=== PATIENT | male | born 1975 | race Hispanic/Latino ===

== ENCOUNTER 2016-06-08 11:25 | Emergency (ER) | payer SELFPAY ==
[~2016-06-08] VITALS: Ht 172.7 cm; Wt 80.0 kg
--- NOTE | 2016-06-08 11:41 | ED.REPORT ---
HPI-General Illness Date of Service June 08, 2016 ED Provider: Abdoul Link DO 40 year old Sammarinese-speaking male with a history of alcohol abuse presents to the ER via EMS accompanied by multiple family members complaining of four days of tingling in the right side of his face, and ringing in his right ear. Symptoms are exacerbated by laying flat, and relieved by standing. Associated symptoms include chills and diaphoresis at night. Patient denies headache, nausea, vomiting, diarrhea, chest pain, hematochezia, and melena. He also reports two bouts of coffee ground appearing emesis two weeks ago. Patient states that he drinks twelve beers daily, but he has been cutting down to 4-6 beers since symptoms onset. When questioned about his angina, he reports that episodes present with pain and tingling down his arm. Nursing Notes Stated Complaint: NIGHT SWEATS/CHILLS/EAR RINGING Nursing Notes Reviewed: Yes Allergies: Coded Allergies: No Known Allergies (Unverified , 06/08/16) Scheduled Lisinopril (Lisinopril) 20 Mg Tablet 20 MG PO DAILY General Time Seen by MD: 11:40 Chief Complaint Other (Chills, Night Sweats) Hx Obtained From: Patient Arrived By: Ambulance Sudden in Onset?: No Onset Occurred: 4 days ago Symptom Duration: Since onset Similar Sx Previous: Yes Past Medical History Past Medical History Angina Smoking History Never Smoker Social History Alcohol Use: >5 per day (12) Drug Use: Denies drug use Other Social History: Good social support Ambulatory Status Independent Review of Systems Full Review of Systems Constitutional: Reports: Chills Ears / Nose / Throat: Reports: Ear ringing right Respiratory: Denies: Non-productive cough, Shortness of breath Cardiovascular: Denies: Chest pain GI: Reports: Hematemesis, Denies: Abdominal pain, Bloody/tarry stool, Diarrhea, Hematochezia, Melena, Nausea, Vomiting Neurologic: Reports: Dizziness, Numbness (Right Face), Shaking, Denies: Focal weakness, Headache, Slurred speech, Unable to speak, Vision change, Weakness Complete sys rev & neg: except as marked. Physical Exam Vital Signs Vital Signs Date Time Temp Pulse Resp B/P Pulse Ox O2 Delivery O2 Flow Rate FiO2 06/08/16 15:34 89 155/110 99 06/08/16 14:32 90 18 158/121 98 5/4/17 12:43 86 20 173/115 98 Room Air 06/08/16 11:49 36.4 107 18 194/127 97 Room Air Initial VS: Reviewed Neck: Supple, Non-tender, Full range of motion Extremities: Vascular intact, Neuro intact, No swelling, No tenderness Skin: Warm, Dry, No cyanosis Psychiatric: Mood/affect normal, Behavior normal, Normal thought content General/Constitutional: Awake, Alert, Well developed, Well nourished Head / Eyes: Atraumatic, Normocephalic, PERRL, EOMI, No nystagmus Respiratory / Chest: Breath sounds NL, No respiratory distress, No rales, No rhonchi, No wheezing Cardiovascular: Heart rate NL, Regular rhythm, Heart sounds NL, Cap refill not delayed, Peripheral circulation NL Neurologic: Oriented X3, Speech NL, No motor deficits, No sensory deficits, CN II - XII intact, Cerebellar NL 5/5 Strength in all four extremities Shaky Tremulous Parasthesia right face Interpretation & Diagnostics MRI BRAIN WITH AND WITHOUT CONTRAST ([id number]) INDICATIONS: Facial numbness, ringing in Ears, brain mass on CT IMPRESSION: 1. No acute intracranial disease process. 2. No areas of acute or chronic infarction. 3. Large anterior left temporal arachnoid cyst which is having mass effect on the adjacent left temporal lobe. 4. 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 Please correlate clinically for Parinaud syndrome. 5. Minimal frontal periventricular and subcortical white matter chronic microvascular ischemic changes. Dictated by: Jessie Gould MD, PhD on 06/08/2016 at 14:13 Approved by: Jessie Gould MD, PhD on 06/08/2016 at 14:24 Lab Results Interpretation Result Diagram: 06/08/16 1222 06/08/16 1222 Test 06/08/16 12:22 06/08/16 12:49 White Blood Count 4.0th/mm3 (3.8-10.1) Red Blood Count 5.13mil/mm3 (4.40-5.80) Hemoglobin 14.0g/dL (13.8-17.2) Hematocrit 42.6% (41.0-50.0) Mean Corpuscular Volume 83.0fL (81-100) Mean Corpuscular Hemoglobin 27.3pg (27.0-35.0) Mean Corpuscular Hemoglobin Concent 32.9% (32.0-37.0) Red Cell Distribution Width 18.5% (12.3-15.4) Platelet Count 177bil/L (150-400) Neutrophils (%) (Auto) 35.8% (40-74) Lymphocytes (%) (Auto) 48.1% (14-46) Monocytes (%) (Auto) 11.7% (4-12) Eosinophils (%) (Auto) 3.2% (0-5) Basophils (%) (Auto) 1.0% (0-3) Prothrombin Time 9.8sec (8.1-12.5) Prothromb Time International Ratio 0.92ratio Sodium Level 136mEq/L (134-144) Potassium Level 4.3mEq/L (3.5-5.2) Chloride Level 97mEq/L (97-108) Carbon Dioxide Level 20mmol/L (18-29) Blood Urea Nitrogen 8mg/dL (6-20) Creatinine 0.72mg/dL (0.76-1.27) Estimat Glomerular Filtration Rate 130mL/min (>59) Glucose Level 115mg/dL (60-99) Calcium Level 9.0mg/dL (8.5-10.1) Magnesium Level 2.0mg/dL (1.6-2.6) Total Bilirubin 0.5mg/dL (0.0-1.2) Aspartate Amino Transf (AST/SGOT) 135U/L (0-50) Alanine Aminotransferase (ALT/SGPT) 154U/L (0-44) Alkaline Phosphatase 84U/L (25-150) Total Protein 8.1g/dL (6.4-8.4) Albumin 4.4g/dL (3.4-5.0) Salicylates Level < 3.0ug/mL (30-250) Alcohols < 10mg/dL (0-10) Hold Urine Received (Received) Lab Results Interpretation: Urine Toxicity screen negative CT Head Interpretation IMPRESSION: 1. No acute intracranial hemorrhage. 2. Fluid collection anterior left middle cranial fossa exerts mass effect on the anterior left temporal lobe and has an appearance that is most compatible with an arachnoid cyst. This is of doubtful clinical significance and likely incidental. MR imaging may be helpful with intravenous contrast for further evaluation, if indicated. Dictated by: West Zamorano M.D. on 06/08/2016 at 11:29 Approved by: West Zamorano M.D. on 06/08/2016 at 11:34 Study: Head CT no contrast Interpretation / Wet Read by: Interpret - Radiologist Re-Eval/Medical Decision Med Decision/Clinical Course Patient presents with multiple issues, one is hypertension which is likely related to heavy alcohol use and essential hypertension. This will be treated as an outpatient with lisinopril and close follow-up with PCP as recommended. The second is that he appears to be in alcohol withdrawal which was appropriately improved with 5 mg of Valium. This also improved his blood pressure and heart rate. He has secondary signs of alcohol abuse including mildly abnormal LFTs, it does not seem that he wishes to stop drinking, I see no indication for a benzodiazepine taper or admission for alcohol symptoms. He will be discharged. He is recommended to follow-up as an outpatient and taper off and eventually quit his drinking. Lastly, is his neurologic symptom of ear ringing and paresthesia of the right side of the face and ear, there are no obvious laboratory findings to suggest a cause for this, his head CT and MRI of the brain incidentally showed some cysts in the brain which do not seem to be the acute cause of his symptoms. Multiple telephone conversations were made in attempt to secure this patient some outpatient follow-up for findings in his brain. It should be noted that it was attempted to make an outpatient appointment for him while he was in the ER. Ultimately, he will be discharged on lisinopril, recommend decreasing his alcohol intake, following up with neurosurgery and his primary care doctor, and returning to the ER if symptoms worsen. Source of Hx: Old records Time of Eval: 13:13 Re-Evaluation/Progress Note: Tremor has resolved. Blood pressure and heart rate are improved, though patient remains hypertensive. I updated patient on the plan of care. Time of Eval: 14:32 Re-Evaluation/Progress Note: Patient continues to have "prickling" sensation to the right face. Discussed CT and MRI results. Re-Evaluation/Progress Note: Discussed plan to discharge. Patient is amenable to the plan. Return precautions given. All other questions addressed. Consultation #1: Consulted With: Neurology Call Returned at: 14:38 Spring Production Supervisor: Referred to other consult (Neurosurgeon) Note: Discussed patient case with Dr. Rodriguez, Neurology at [facility]. Recommends consult Consultation #2: Referral / Consult Name: MADISON MIRZA MD Consulted With: Neurosurgery Call Returned at: 14:56 Spring Production Supervisor: Referred to other consult Note: Discussed patient case with Dr. Mirza Neurosurgery. He only performs spinal surgeries. Recommends consult with Neurosurgery at [facility] or . Consultation #3: Consulted With: Neurosurgery ([facility]) Call Returned at: 15:05 Note: Discussed patient case with Dr. Gaitan, Neurosurgeon at [facility]. Nothing to do emergently. Repeat CT in one year. Recommended contacting the Clinic in order to have a follow up appointment. The emergency general manager land department contacted his office and attempted to make an appointment with environmental officer. The traveling secretary declined to allow an appointment to be made. 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 There is not an obvious reason why you have tingling in your face. You have signs of liver damage likely due to your heavy alcohol use. I suggest that you slowly taper your alcohol use and eventually quit altogether. You can contact crisis respite if you require assistance in stopping drinking. Additionally, your blood pressure was severely elevated this is again likely due to your alcohol use and you should start a blood pressure medicine known as lisinopril. Call your primary care doctor, Romeo Linton, today for close follow-up regarding your blood pressure. And obtain a referral from your primary care doctor to neurosurgery. Follow-up with Dr. Gaitan, Neurosurgery, in [place] to evaluate the cysts on your brain. You may need a referral from your primary care doctor. He will likely help to arrange a repeat CT in one year. His office number is Return to the ER if you develop worsening symptoms, headache, weakness, confusion, changes in vision, difficulty speaking, difficulty walking, or any other concerning symptoms. Referrals: Sanam Loya (PCP) Radha Attestation Portions of this note were transcribed by Niranjan Russo. I, Dr. Link, personally performed the history, physical exam and medical decision-making; I reviewed and confirmed the accuracy of the information in the transcribed note. Signed by: Radha Riddle, 06/08/2016 and 15: 14 copies to: Sanam Loya Timothy S DO June 08, 2016 11:41 NIRANJAN RUSSO June 08, 2016 11:44
[2016-06-08 11:49] VITALS: BP 194/127; PULSE 107; RESP 18; O2SAT 97
[2016-06-08] MEDS ORDERED: Thiamine Inj 100 MG, Folic Acid Inj 1 MG, Magnesium Sulfate 50% Inj 2 GM, Multivitamins... IV ONE ×5 (12:10)
[2016-06-08] MEDS ORDERED: Ondansetron 2 mg/mL 2 mL Inj IVPUSH ONE (12:10)
[2016-06-08] MEDS ORDERED: 0.9% Sodium Chloride 1,000 ML IV ONE (12:15)
[2016-06-08 12:35] LABS: EOSINOPHILS % (AUTO) 3.2 % (0-5); MONOCYTES % (AUTO) 11.7 % (4-12); Mean Corpuscular Hemoglobin 27.3 pg (27.0-35.0); NEUTROPHILS % (AUTO) 35.8 % (40-74); Platelet Count 177 bil/L (150-400)
--- NOTE | 2016-06-08 12:36 | DRSVH ---
PROCEDURE: CT BRAIN WITHOUT CONTRAST ([id number]) INDICATIONS: numbness on face TECHNIQUE: Noncontrast 4.5 mm thick angled axial sections acquired from the foramen magnum to the vertex, with c oronal reformats. COMPARISON: None. FINDINGS: Image quality: Diagnostic. Brain: There is no acute intra-axial or extra-axial hemorrhage. Large extra-axial fluid collection i s identified within it the middle cranial fossa along the anterior aspect of the left temporal lobe, measuring 4 x 3 x 3 cm (image 6, series 2 and image 22, series 4). Mass effect on the adjacent brain parenchyma is identified. No solid components are appreciated. There is no midline shift. No remedios tional extra-axial fluid collections are evident. The orbits are grossly unremarkable. No large areas of diffusely decreased attenuation are evident within the brain to suggest diffuse cer ebral edema. No focal parenchymal abnormality is identified. The ventricles and cortical sulci are age-appropriate. Bones: Calvarium and visualized facial bones are grossly intact. The imaged paranasal sinuses and m astoid air cells are clear. IMPRESSION: 1. No acute intracranial hemorrhage. 2. Fluid collection anterior left middle cranial fossa exerts mass effect on the anterior left tempo ral lobe and has an appearance that is most compatible with an arachnoid cyst. This is of doubtful c linical significance and likely incidental. MR imaging may be helpful with intravenous contrast for further evaluation, if indicated. Dictated by: West Zamorano M.D. on 06/08/2016 at 11:29 Approved by: West Zamorano M.D. on 06/08/2016 at 11:34
[2016-06-08 12:43] VITALS: BP 173/115; PULSE 86; RESP 20; O2SAT 98
[2016-06-08 12:47] LABS: INR 0.92 ratio
--- NOTE | 2016-06-08 14:26 | DRSVH ---
PROCEDURE: MRI BRAIN WITH AND WITHOUT CONTRAST ([id number]) INDICATIONS: Facial numbness, ringing in Ears, brain mass on CT TECHNIQUE: Noncontrast axial T1 spin echo, axial T2 fast spin echo, sagittal and axial FLAIR, coronal T2 fast sp in echo, axial gradient echo, axial diffusion and ADC through the brain. After the administration of contrast, axial and coronal 3D VIBE or T1 spin echo with fat saturation through the brain. COMPARISON: [facility], CT, CT BRAIN WO CON, 06/08/2016, 12:20. FINDINGS: Image quality: Excellent. CSF Spaces: Basal cisterns are patent. Large anterior left temporal arachnoid cyst is noted. The ant erior left temporal arachnoid cyst is having mass effect on the adjacent left temporal lobe. Ventricl es are normal in size and shape. Brain: No midline shift. No intracranial bleeds or masses. 1.2 cm diameter pineal cyst noted. Pinea l cyst is having mass effect on the superior colliculi of the tectal plate. No abnormal intracranial enhancement. The brainstem appears normal. Diffusion-weighted images demonstrate no acute ischemic insults. No areas of encephalomalacia. No susceptibility weighted abnormalities are identified in the brain parenchyma. A few, small, punctate foci increased T2 signal noted in the frontal periventricul ar and subcortical white matter tracks most consistent with minimal chronic microvascular ischemic ch nyla. Normal intravascular flow voids are present. Skull and face: Calvarial marrow is normal in signal. Orbits appear normal. Sinuses: Small mucous retention cyst versus polyp is noted in the right maxillary sinus. Minimal muco adelina thickening noted in the maxillary sinuses bilaterally. The mastoids appear clear. IMPRESSION: 1. No acute intracranial disease process. 2. No areas of acute or chronic infarction. 3. Large anterior left temporal arachnoid cyst which is having mass effect on the adjacent left tempo ral lobe. 4. 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 Please cor relate clinically for Parinaud syndrome. 5. Minimal frontal periventricular and subcortical white matter chronic microvascular ischemic change s. Dictated by: Jessie Gould MD, PhD on 06/08/2016 at 14:13 Approved by: Jessie Gould MD, PhD on 06/08/2016 at 14:24
[2016-06-08 14:32] VITALS: BP 158/121; PULSE 90; RESP 18; O2SAT 98
[2016-06-08 15:34] VITALS: BP 155/110; PULSE 89; O2SAT 99
[2016-06-08] MEDS ORDERED: LISI-567 PO (15:58)
== END 2016-06-08 16:33 | disposition home or self-care (01) ==
LOC: SED 11:25
DX: R20.2 Paresthesia of skin (principal); G93.0 Cerebral cysts; E34.8 Other specified endocrine disorders; F10.10 Alcohol abuse, uncomplicated
CPT/HCPCS: 36415; 70450; 70553; 80053; 83735; 85025; 85610; 96361; 96374; 96375; 99285; A9585; G0480; J2405; J3360; J3475; J7030